=== PATIENT | female | born 1940 | race Caucasian/White ===

== ENCOUNTER 2016-12-31 14:40 | Emergency (ER) | payer MEDICARE, OTHER ==
[~2016-12-31] VITALS: Ht 162.6 cm; Wt 62.7 kg
[~2016-12-31 14:40] MED LIST: CO-Q-10 PO; GLUC1TAB57 PO; HYDR25TA4 PO; LOP600 PO; MVI PO; OMEP40CA25 PO; TELM40TA PO
[2016-12-31 14:47] VITALS: BP 192/64; PULSE 53; RESP 20; O2SAT 100
--- NOTE | 2016-12-31 16:01 | ED.REPORT ---
HPI-General Illness Date of Service Dec 31, 2016 ED Provider: Scott Maguire Patient is a 76 year old female with a hx of HTN, DM, and GERD who presents to the ED from for elevated blood pressure without symptoms. She denies chest pain, SOB, headache, vision changes, numbness, tingling, weakness, confusion, slurred speech, or any other symptoms. Patient has been taking her blood pressure multiple times today and it has ranged from the low 200s systolic to 180s systolic. She saw her PCP yesterday and was prescribed amlodipine 5mg. Her first dose was yesterday afternoon. She took her amlodipine, benazepril, and metoprolol this morning. Nursing Notes Stated Complaint: HIGH BLOOD PRESSURE Chief Complaint: General Complaint Nursing Notes Reviewed: Yes Allergies: Coded Allergies: Quinolones (Verified Adverse Reaction, Intermediate, Rash, 03/03/09) Uncoded Allergies: No Known Allergies (Allergy, Mild, 12/24/03) Quinolones (Adverse Reaction, Intermediate, Rash, 12/24/03) topical iodine (Adverse Reaction, Intermediate, rash on arm where iodine was placed, 12/24/03) Scheduled ([Co-Q-10]) PO DAILY Gemfibrozil-Expunged Drug, Do Not Renew! (Lopid-Expunged Drug, Do Not Renew!) 600 Mg Tablet 600 MG PO BID Ilxavhxx-Yyuawnr-Yqfs 149-Hyal (Glucosamine Chondroitin Tablet) 1 Tab Tablet 1 TAB PO DAILY Hydrochlorothiazide-Expunged, Do Not Renew! (Hydrochlorothiazide-Expunged, Do Not Renew!) 25 Mg Tablet 25 MG PO AM Omeprazole-Expunged Drug, Do Not Renew! (Omeprazole-Expunged Drug, Do Not Renew! ) 40 Mg Capsule.dr 40 MG PO AM Telmisartan-Expunged Drug, Do Not Renew! (Micardis-Expunged Drug, Do Not Renew! ) 40 Mg Tablet 40 MG PO DAILY Therapeutic Multivit/Minerals-Expunged Drug, (Therapeutic Multivit/Minerals- Expunged Drug,) 1 Ea Tab 1 TAB PO DAILY General Time Seen by MD: 16:00 Chief Complaint Other (Elevated BP ) Hx Obtained From: Patient Arrived By: Walk-in Onset Occurred: 1 week ago Symptom Duration: Intermittent Recent Healthcare: Recent doctor visit Past Medical History Past Medical History HTN DM GERD arthritis Past Surgical History L hip replacement Reports: Hysterectomy Smoking History Former Smoker, Unknown if Ever Smoker Social History Alcohol Use: "Social" Ambulatory Status Independent Review of Systems +elevated BP -tingling Full Review of Systems Respiratory: Denies: Shortness of breath Cardiovascular: Denies: Chest pain Musculoskeletal: Reports: Extremity swelling Neurologic: Reports: Dizziness, Lightheaded, Denies: Confusion, Headache, Numbness, Slurred speech, Vision change, Weakness Complete sys rev & neg: except as marked. Physical Exam Vital Signs Vital Signs Date Time Temp Pulse Resp B/P Pulse Ox O2 Delivery O2 Flow Rate FiO2 12/31/16 18:17 36.7 57 20 184/67 96 Room Air 12/31/16 16:59 36.7 80 20 168/55 99 Room Air 12/31/16 16:04 56 20 185/66 100 12/31/16 14:47 36.8 53 20 192/64 100 Room Air Initial VS: Reviewed, Vital signs abnormal Head / Eyes: Atraumatic, Normocephalic Neck: Supple, Full range of motion Skin: Warm, Dry Psychiatric: Mood/affect normal, Behavior normal, Normal thought content General/Constitutional: Awake, Alert, No acute distress Respiratory / Chest: Atraumatic, Breath sounds NL, Breath sounds = bilat, No respiratory distress Cardiovascular: Heart rate NL, Regular rhythm, Heart sounds NL Lower Extremity / Pelvis / MS: No edema No calf swelling or tenderness Neurologic: Oriented X3, Speech NL, CN II - XII intact Speech fluent no pronator drift strength 5/5 all 4 extremities Interpretation & Diagnostics Lab Results Interpretation Result Diagram: 12/31/16 1611 12/31/16 1715 Test 12/31/16 16:07 12/31/16 16:11 12/31/16 17:15 Hold Urine Received (Received) White Blood Count 4.9th/mm3 (3.8-10.1) Red Blood Count 3.94mil/mm3 (3.90-5.20) Hemoglobin 12.3g/dL (12.0-15.6) Hematocrit 36.0% (35.0-46.0) Mean Corpuscular Volume 91.4fL (81-100) Mean Corpuscular Hemoglobin 31.2pg (27.0-35.0) Mean Corpuscular Hemoglobin Concent 34.2% (32.0-37.0) Red Cell Distribution Width 12.1% (12.3-15.4) Platelet Count 266bil/L (150-400) Neutrophils (%) (Auto) 59.4% (40-74) Lymphocytes (%) (Auto) 31.2% (14-46) Monocytes (%) (Auto) 5.9% (4-12) Eosinophils (%) (Auto) 3.1% (0-5) Basophils (%) (Auto) 0.2% (0-3) Sodium Level 136mEq/L (134-144) Potassium Level 4.2mEq/L (3.5-5.2) Chloride Level 96mEq/L (97-108) Carbon Dioxide Level 22mmol/L (18-29) Blood Urea Nitrogen 12mg/dL (8-27) Creatinine 0.62mg/dL (0.57-1.00) Estimat Glomerular Filtration Rate 134mL/min (>59) Glucose Level 108mg/dL (60-99) Calcium Level 9.4mg/dL (8.5-10.1) Magnesium Level 1.9mg/dL (1.6-2.6) Total Bilirubin 0.4mg/dL (0.0-1.2) Aspartate Amino Transf (AST/SGOT) 24U/L (0-50) Alanine Aminotransferase (ALT/SGPT) 26U/L (0-32) Alkaline Phosphatase 58U/L (25-165) Troponin T < 0.010ug/L (0.0-0.011) Total Protein 6.8g/dL (6.4-8.4) Albumin 4.4g/dL (3.4-5.0) ECG Interpretation ECG Interpretation: sinus rate 50 nL axis nL intervals nL ST segment changes voltage criteria for ventricular hypertrophy Time: 16:18 Interpreted by: ED physician Re-Eval/Medical Decision Med Decision/Clinical Course Patient is a 76 year old female with a hx of HTN, DM, and GERD who presents to the ED from for elevated blood pressure without symptoms. She denies chest pain, SOB, headache, vision changes, numbness, tingling, weakness, confusion, slurred speech, or any other symptoms. Patient has been taking her blood pressure multiple times today and it has ranged from the low 200s systolic to 180s systolic. She saw her PCP yesterday and was prescribed amlodipine 5mg. Her first dose was yesterday afternoon. She took her amlodipine, benazepril, and metoprolol this morning. Upon arrival to the emergency department the patient is quite hypertensive though otherwise hemodynamically stable and afebrile. Copious neurologic examination is unremarkable and she denies any active symptoms whatsoever. EKG interpreted by myself as documented below: sinus rate 50 normal axis and intervals no ST segment changes voltage criteria for ventricular hypertrophy Laboratory studies notable as below: BMP unremarkable CBC unremarkable Troponin negative At this time, the patient presents with asymptomatic hypertension. I see no evidence of end organ injury as evidenced by absence of headache, vision changes , focal neurologic deficits, signs of kidney injury, signs of cardiac ischemia. Patient was observed here in the emergency department and had improvement in her blood pressure to the 160s systolic. She is currently on several antihypertensive agent that was just started on amlodipine. Her primary care physician is currently managing her hypertension. It would appear, that her hypertension is not adequately controlled at this time however she is working with her primary care physician and started new medications with the goal of achieving blood pressure optimization. Given that there are no signs at this time meet criteria for hypertensive emergency and do not feel that the patient requires IV antihypertensives or admission to the hospital. I discussed this in depth with the patient and she is in agreement with the plan. She will follow up closely with her primary care physician first thing on Monday and continue to keep a log of her blood pressure and take her prescribed blood pressure medications. She was discharged in stable condition. Time of Eval: 18:02 Re-Evaluation/Progress Note: Discussed plan for discharge. Patient understands and agrees with plan. All questions addressed at this time. Counseled Regarding: Diagnosis, Lab results, Need for follow-up, When/why to return to ED Discharge & Departure Primary Impression: Hypertensive urgency Disposition: Home Discharge Condition All VS Reviewed: Yes Condition: Improved Patient Instructions: Chronic Hypertension (ED) Additional Instructions: Thank you for seeking care at the emergency room. Our primary goal today in the ED was to evaluate you for any life-threatening conditions. Your evaluation was reassuring. Continue to take your blood pressure medications as prescribed. Keep a blood pressure log. You should follow-up with your primary doctor in the next week. Call Monday to schedule an appointment. You should return to the ED immediately if you develop blurry vision, headache, confusion, shortness of breath, chest pain, lightheadedness, weakness, a sustained blood pressure greater than 200/100, or any other concerning signs or symptoms. Thank you for letting us partake in your care today. Referrals: Sea Serna DO (PCP) Lawrenceibfran Attestation Portions of this note were transcribed by Malik Em. I, Dr. Maguire personally performed the history, physical exam and medical decision-making; I reviewed and confirmed the accuracy of the information in the transcribed note. Signed: Sylvie Daily, 12/31/16 copies to: Sea Serna Beck O MD Dec 31, 2016 16:01 MALIK EM Dec 31, 2016 16:10
[2016-12-31 16:04] VITALS: BP 185/66; PULSE 56; RESP 20; O2SAT 100
[2016-12-31 16:59] VITALS: BP 168/55; PULSE 80; RESP 20; O2SAT 99
[2016-12-31 17:34] LABS: BASOPHILS % (AUTO) 0.2 % (0-3); EOSINOPHILS % (AUTO) 3.1 % (0-5); MONOCYTES % (AUTO) 5.9 % (4-12); Mean Corpuscular Hemoglobin 31.2 pg (27.0-35.0); Mean Corpuscular Volume 91.4 fL (81-100); NEUTROPHILS % (AUTO) 59.4 % (40-74); Platelet Count 266 bil/L (150-400)
[2016-12-31 18:00] LABS: TROPONIN T < 0.010 ug/L (0.0-0.011)
[2016-12-31 18:09] LABS: Magnesium 1.9 mg/dL (1.6-2.6)
[2016-12-31 18:17] VITALS: BP 184/67; PULSE 57; RESP 20; O2SAT 96
== END 2016-12-31 18:18 | disposition home or self-care (01) ==
LOC: SED 14:40
DX: I16.0 Hypertensive urgency (principal); E11.9 Type 2 diabetes mellitus without complications; K21.9 Gastro-esophageal reflux disease without esophagitis; Z96.642 Presence of left artificial hip joint; Z90.710 Acquired absence of both cervix and uterus; Z87.891 Personal history of nicotine dependence